=== PATIENT | female | born 1960 ===

== ENCOUNTER → 2022-07-22 | Outpatient (CLI) | payer OTHER ==
[2022-07-22 14:24] LABS: Source, Urine Clean Catch
[2022-07-22 17:38] LABS: Appearance, Urine Clear (Clear); Bilirubin, Urine Neg (Neg); Blood, Urine Neg (Neg); Color, Urine Yellow (P-Yellow); Glucose Qualitative, Urine Neg (Neg); Ketones, Urine Neg (Neg); Leukocyte Esterase, Urine 1+ (Neg); Nitrite, Urine Pos (Neg); Protein, Urine 1+ (Neg); Specific Gravity, Urine 1.015 (1.003-1.022); Urobilinogen, Urine NORM (Normal)
[2022-07-22 17:47] LABS: Amorphous Light (0-Heavy); Bacteria Many /hpf; Red Blood Cells, Urine 0-2 /hpf (0-2); Squamous Epithelial Cells Rare /hpf (Few)
== END | disposition home or self-care (01) ==
LOC: LAB SHORT 14:22 → LAB 14:22
PROVIDERS: Nurse Practitioner Family
DX: R39.14 Feeling of incomplete bladder emptying (principal)
CPT/HCPCS: 81001; 87077; 87086; 87186

== ENCOUNTER → 2024-01-29 | Outpatient (CLI) | payer OTHER | END | disposition home or self-care (01) | LOC: LAB SHORT 10:54 → LAB 10:54 | DX: R82.81 Pyuria (principal) | CPT/HCPCS: 87077; 87086; 87186 ==

== ENCOUNTER → 2024-04-25 | Outpatient (CLI) | payer OTHER | LOC: LAB 16:51 → LAB SHORT 16:51 | DX: N39.0 Urinary tract infection, site not specified (principal) | CPT/HCPCS: 87077; 87086; 87147; 87186 ==

== ENCOUNTER → 2025-03-03 | Outpatient (CLI) | payer OTHER ==
[~2025-03-03] MED LIST: ESCI20; IMMUNE ESSENTI; Phentermine HCl15 MG
[2025-03-03 16:25] LABS: Bacterial Vaginosis PCR Negative (NEGATIVE); Candida Group, PCR NOT DETECTED (NOT DETECT); Candida glabrata-krusei, PCR NOT DETECTED (NOT DETECT)
== END ==
LOC: LAB 09:02 → LAB SHORT 09:02
PROVIDERS: Nurse Practitioner Family
DX: N89.8 Other specified noninflammatory disorders of vagina (principal)
CPT/HCPCS: 81515

== ENCOUNTER 2025-03-17 09:59 | Day surgery (SDC) | payer OTHER ==
[~2025-03-17] VITALS: Ht 170.2 cm; Wt 80.2 kg
[2025-03-17] MEDS ORDERED: ESCI20 (10:23)
[2025-03-17] MEDS ORDERED: Phentermine HCl15 MG (10:24)
[2025-03-17] MEDS ORDERED: IMMUNE ESSENTI (10:25)
--- NOTE | 2025-03-17 11:02 | NUR ---
03/17/25 1102 TIEN PERALES MA REPORTED TO THIS RN THAT THE PATIENT HAD REPORTED A FALL ON D/T TRIPPING. PT DENIES SYNCOPE INITIATING FALL. DR. STEWARD CONSULTED - ANES. PT ALERT AND ORIENTED TO PLACE/TIME. PT AGAIN DENIES SYNCOPE. REPORTS HEADACHE/RINGING THE FIRST TWO DAYS AFTER INITIAL INJURY, BUT DENIES FURTHER INCIDENT SINCE. DENIES PRESSURE, PAIN, VISUAL CHANGES. SCANT BRUISING NOTED TO R SIDE OF UPPER HALF OF FACE.
[2025-03-17 13:31] VITALS: BP 110/67
== END 2025-03-17 13:15 | disposition home or self-care (01) ==
LOC: ORSCSDS 09:59 → ORD 13:15 → ORSCSDS 14:00
PROVIDERS: Family Medicine
PROC: 0DJD8ZZ Inspection of Lower Intestinal Tract, Via Natural or Artificial Opening Endoscopic (ICD-10-PCS; principal; 2025-03-17 11:15)
DX: Z12.11 Encounter for screening for malignant neoplasm of colon (principal); K64.0 First degree hemorrhoids; Z86.0101 Personal history of adenomatous and serrated colon polyps; F32.A Depression, unspecified; Z79.899 Other long term (current) drug therapy
CPT/HCPCS: J2704; J7120